=== PATIENT | female | born 1985 | race Caucasian/White ===

== ENCOUNTER 2017-12-09 03:01 | Emergency (ER) | payer OTHER ==
[~2017-12-09] VITALS: Ht 162.6 cm; Wt 73.9 kg
[~2017-12-09 03:01] MED LIST: AUG500 PO; LAC PO; PRENATAL1 TA3 PO
[2017-12-09 03:07] VITALS: Ht 162.6 cm; Wt 73.9 kg
[2017-12-09 06:45] VITALS: BP 158/98
== END 2017-12-09 06:45 | disposition home or self-care (01) ==
LOC: ED 03:01
DX: M54.5 Low back pain (principal); J45.909 Unspecified asthma, uncomplicated; Z88.5 Allergy status to narcotic agent
CPT/HCPCS: J1100

== ENCOUNTER 2018-10-24 16:10 | Emergency (ER) | payer MEDICAID ==
[~2018-10-24] VITALS: Ht 160 cm; Wt 68.0 kg
[2018-10-24 16:20] VITALS: Ht 160 cm; Wt 68.0 kg
[2018-10-24 17:46] LABS: BASOPHIL % 1.5 % (0-2); PLATELET COUNT 254 x10^3mcL (130-400); RED CELL DISTRIBUTION WIDTH 13.3 % (11.5-14.5)
[2018-10-24 19:36] VITALS: BP 104/67
== END 2018-10-24 19:36 | disposition home or self-care (01) ==
LOC: ED 16:10
PROVIDERS: Emergency Medicine
DX: O03.9 Complete or unspecified spontaneous abortion without complication (principal); J45.909 Unspecified asthma, uncomplicated; Z88.1 Allergy status to other antibiotic agents; Z3A.11 11 weeks gestation of pregnancy
CPT/HCPCS: 36415

== ENCOUNTER 2018-10-27 16:37 | Emergency (ER) | payer MEDICAID ==
[~2018-10-27] VITALS: Ht 160 cm; Wt 68.9 kg
[2018-10-27 17:04] VITALS: Ht 160 cm; Wt 68.9 kg
[2018-10-27 18:00] LABS: BASOPHIL % 0.3 % (0-2); PLATELET COUNT 252 x10^3mcL (130-400); RED CELL DISTRIBUTION WIDTH 13.1 % (11.5-14.5)
[2018-10-27 19:15] VITALS: BP 120/83
== END 2018-10-27 19:15 | disposition home or self-care (01) ==
LOC: ED 16:37
PROVIDERS: Emergency Medicine
DX: O03.9 Complete or unspecified spontaneous abortion without complication (principal); J45.909 Unspecified asthma, uncomplicated; Z88.6 Allergy status to analgesic agent
CPT/HCPCS: 36415

== ENCOUNTER 2020-06-28 15:59 | Emergency (ER) | payer OTHER ==
[~2020-06-28] VITALS: Ht 160 cm; Wt 66.7 kg
[2020-06-28 16:22] VITALS: Ht 160 cm; Wt 66.7 kg
[2020-06-28 20:10] VITALS: BP 110/80
== END 2020-06-28 20:10 | disposition home or self-care (01) ==
LOC: ED 15:59
DX: S93.402A Sprain of unspecified ligament of left ankle, initial encounter (principal); J45.909 Unspecified asthma, uncomplicated; Z88.6 Allergy status to analgesic agent; W22.8XXA Striking against or struck by other objects, initial encounter; Y93.89 Activity, other specified; Y92.89 Other specified places as the place of occurrence of the external cause; Y99.8 Other external cause status
CPT/HCPCS: J1885